=== PATIENT | female | born 2000 | race Caucasian/White ===

== ENCOUNTER 2022-01-18 20:09 | Emergency (ER) | payer OTHER ==
[~2022-01-18] VITALS: Ht 172.7 cm; Wt 60.5 kg
[2022-01-18] MEDS ORDERED: NAPROSYN500 MG PO (22:51)
[2022-01-18] MEDS ORDERED: FLEXERIL 1010 MG/TAB PO (22:51)
[2022-01-18 23:04] VITALS: BP 123/88; PULSE 79; TEMP 97.9
== END 2022-01-18 23:04 | disposition home or self-care (01) ==
LOC: COL.ER 20:09
DX: S02.2XXA Fracture of nasal bones, initial encounter for closed fracture (principal); S09.90XA Unspecified injury of head, initial encounter; W09.8XXA Fall on or from other playground equipment, initial encounter; Y93.89 Activity, other specified
CPT/HCPCS: Q9967

== ENCOUNTER 2023-12-25 14:26 | Emergency (ER) | payer OTHER ==
[~2023-12-25] VITALS: Ht 172.7 cm; Wt 61.4 kg
[~2023-12-25 14:26] MED LIST: FLEXERIL 1010 MG/TAB PO; NAPROSYN500 MG PO; ZOFRAN ODT4 MG PO
[2023-12-25 14:34] VITALS: TEMP 98.9
[2023-12-25 16:12] VITALS: BP 120/84; PULSE 75
== END 2023-12-25 16:13 | disposition home or self-care (01) ==
LOC: COL.ER 14:26
DX: S16.1XXA Strain of muscle, fascia and tendon at neck level, initial encounter (principal); V89.2XXA Person injured in unspecified motor-vehicle accident, traffic, initial encounter; Y92.410 Unspecified street and highway as the place of occurrence of the external cause